=== PATIENT | female | born 2000 | race Caucasian/White ===

== ENCOUNTER 2020-04-25 23:13 | Emergency (ER) | payer MEDICAID ==
[~2020-04-25] VITALS: Ht 167.6 cm; Wt 61.8 kg
[2020-04-25 23:14] VITALS: Ht 167.6 cm; Wt 61.8 kg
[2020-04-25] MEDS ORDERED: PRENAVITE1 TAB PO (23:15)
[2020-04-25 23:54] LABS: BILIRUBIN NEGATIVE (NEGATIVE); KETONE NEGATIVE (NEGATIVE); NITRITE NEGATIVE (NEGATIVE); UROBILINOGEN NORMAL mg/dL (< 2)
[2020-04-25 23:55] LABS: BACTERIA MODERATE HPF (NONE SEEN); SQUAMOUS EPITHELIAL 0-5 HPF (0-4)
[2020-04-26] MEDS ORDERED: MACROBID100 MG PO (00:12)
[2020-04-26 00:26] LABS: BASOPHILS 0.2 % (0-2); EOSINOPHILS 0.8 % (0-7); HEMATOCRIT 34.1 % (36.0-48.0); HEMOGLOBIN 11.5 g/dL (12-16); IMMATURE GRANULOCYTES 0.2 % (0-5); LYMPHOCYTE ABS# 3.26 10x3/uL (1.18-3.74); LYMPHOCYTES 28.2 % (15-50); MCH 29.3 pg (26.0-34.0); MCHC 33.7 g/dL (31.0-37.0); MEAN PLATELET VOLUME 9.9 fL (7.4-10.4); NEUTROPHILS 60.6 % (40-80); PLATELET COUNT 211 10x3/uL (130-400); RBC 3.92 10x6/uL (4.00-5.40); RDW 13.2 % (11.5-14.5); WBC 11.5 10x3/uL (4.8-10.8)
[2020-04-26 00:35] LABS: CALC OSMOLALITY 265 mosm/kg (275-300); CALCIUM 8.8 mg/dL (8.5-10.1); CARBON DIOXIDE 25.9 mmol/L (21.0-32.0); CHLORIDE - SERUM 104 mmol/L (98-107); CREATININE - SERUM 0.5 mg/dL (0.6-1.3); GLUCOSE 82 mg/dL (74-106); POTASSIUM - SERUM 3.1 mmol/L (3.5-5.1); SODIUM 135 mmol/L (136-145); UREA NITROGEN 4 mg/dL (7-18); eGFR NON AFRICAN AMERICAN > 90 mL/min (90-120)
[2020-04-26 00:39] LABS: ALBUMIN 2.9 g/dL (3.4-5.0); ALKALINE PHOSPHATASE 58 U/L (30-120); ALT (SGPT) 12 U/L (10-68); BILIRUBIN - TOTAL 0.41 mg/dL (0.2-1.3); PROTEIN - SERUM 6.5 g/dL (6.4-8.2)
[2020-04-26 00:54] VITALS: BP 107/63
== END 2020-04-26 00:55 | disposition home or self-care (01) ==
LOC: D.ER 23:13
PROVIDERS: Family Medicine
DX: O26.892 Other specified pregnancy related conditions, second trimester (principal); Z3A.19 19 weeks gestation of pregnancy; R10.30 Lower abdominal pain, unspecified

== ENCOUNTER 2020-05-22 19:35 | Emergency (ER) | payer MEDICAID ==
[~2020-05-22] VITALS: Ht 167.6 cm; Wt 63.6 kg
[~2020-05-22 19:35] MED LIST: MACROBID100 MG PO; PRENAVITE1 TAB PO
[2020-05-22 19:52] VITALS: BP 100/63; Ht 167.6 cm; Wt 63.6 kg
[2020-05-22 20:45] LABS: BILIRUBIN NEGATIVE (NEGATIVE); KETONE NEGATIVE (NEGATIVE); NITRITE NEGATIVE (NEGATIVE); UROBILINOGEN NORMAL mg/dL (< 2)
[2020-05-22 20:46] LABS: SQUAMOUS EPITHELIAL 0-5 HPF (0-4)
[2020-05-22 20:47] LABS: AMORPHOUS SEDIMENT <1+ LPF (NONE SEEN); BACTERIA FEW HPF (NONE SEEN)
[2020-05-22] MEDS ORDERED: OMNICEF300 MG PO (21:37)
== END 2020-05-22 23:29 | disposition home or self-care (01) ==
LOC: D.ER 19:35
PROVIDERS: Family Medicine
DX: O99.891 Other specified diseases and conditions complicating pregnancy (principal); R82.81 Pyuria; Z3A.24 24 weeks gestation of pregnancy; M54.9 Dorsalgia, unspecified

== ENCOUNTER 2020-07-01 23:00 | Outpatient (CLI) | payer MEDICAID ==
[2020-05-22 19:52] VITALS: BMI 22.6
[~2020-07-01 23:00] MED LIST changes: +OMNICEF300 MG PO
[2020-07-01 23:59] LABS: BASOPHILS 0.8 % (0-2); EOSINOPHILS 0.5 % (0-7); HEMATOCRIT 36.8 % (36.0-48.0); HEMOGLOBIN 12.2 g/dL (12-16); LYMPHOCYTES 21.3 % (15-50); MCH 28.8 pg (26.0-34.0); MCHC 33.1 g/dL (31.0-37.0); MEAN PLATELET VOLUME 8.7 fL (7.4-10.4); MONOCYTES 7.5 % (2-11); NEUTROPHILS 69.9 % (40-80); RBC 4.23 10x6/uL (4.00-5.40); RDW 12.7 % (11.5-14.5); WBC 13.1 10x3/uL (4.8-10.8)
[2020-07-02] LABS: PLATELET COUNT 256 10x3/uL (130-400)
[2020-07-02 00:28] LABS: BILIRUBIN NEGATIVE (NEGATIVE); KETONE NEGATIVE (NEGATIVE); NITRITE NEGATIVE (NEGATIVE); UROBILINOGEN NORMAL mg/dL (< 2)
[2020-07-02 00:30] LABS: BACTERIA FEW HPF (NONE SEEN); SQUAMOUS EPITHELIAL 0-5 HPF (0-4)
== END 2020-07-02 04:02 | disposition home or self-care (01) ==
LOC: D.LDO 23:00 → D.LD 23:01 → D.LDO 07-02 04:02
PROVIDERS: ATTEND Student in an Organized Health Care Education/Training Program
DX: O47.9 False labor, unspecified (principal)